=== PATIENT | male | born 1955 ===

== ENCOUNTER 2018-06-20 14:02 | Emergency (ER) | payer OTHER ==
[~2018-06-20] VITALS: Ht 182.9 cm; Wt 77.1 kg
== END 2018-06-20 16:14 | disposition left against medical advice (07) ==
LOC: ER 14:02
DX: R10.30 Lower abdominal pain, unspecified (principal); Z53.21 Procedure and treatment not carried out due to patient leaving prior to being seen by health care provider
CPT/HCPCS: 99281